=== PATIENT | female | born 1960 | race Caucasian/White ===

== ENCOUNTER 2022-03-22 09:34 | Outpatient (CLI) | payer MEDICAID, SELFPAY ==
--- NOTE | 2022-03-22 09:42 | MM_ITS ---
WS: [id number] BILATERAL SCREENING DIGITAL BREAST TOMOSYNTHESIS MAMMOGRAM WITH CAD HISTORY: SCREENING COMPARISON: 04/28/2019, 03/14/2011 Bilateral CC and MLO views with tomosynthesis and synthetic mammography submitted. Computer aided det ection analyzed. Breast composition: The breasts are heterogeneously dense, which may obscure small masses. No suspici ous masses, microcalcifications or architectural distortion. Arterial calcifications. MM/[place] [id number] IMPRESSION: BI-RADS: 2-Benign FOLLOW UP: 1 Year Follow-up
== END 2022-03-22 09:35 | disposition home or self-care (01) ==
LOC: RAD 09:34
PROVIDERS: PCP Nurse Practitioner Family; Visit Provider Nurse Practitioner Family
DX: Z12.31 Encounter for screening mammogram for malignant neoplasm of breast (principal)
CPT/HCPCS: 77063; 77067

== ENCOUNTER 2022-04-05 13:04 | Outpatient (CLI) | payer MEDICAID, SELFPAY ==
--- NOTE | 2022-04-05 13:16 | CT_ITS ---
WS: [id number] LDCT LUNG CANCER SCREENING TECHNIQUE: Noncontrast CT of the chest with coronal and sagittal reformatted images. CLINICAL INFORMATION: NICOTINE DEPENDENCE,CIGARETTES COMPARISON: None. DLP: 84.67 mGy.cm DIvol: Mean CTDIvol: 1.60 (mGy) All CT scans at [facility] use at least one of these dose optimization techniques: automat ed exposure control; mA and/or kV adjustment per patient size (includes targeted exams where dose is matched to clinical indication); or iterative reconstruction. FINDINGS: Calcific granuloma LEFT lower lobe. Tiny 2 mm nodule LEFT upper lobe and RIGHT lower lobe. 3 mm nodule RIGHT upper lobe. Normal caliber thoracic aorta. No mediastinal or hilar lymphadenopathy. No axillary lymphadenopathy. CT/CT lung screening [id number] IMPRESSION: LUNG-RADS: 2-Benign Appearance or Behavior FOLLOW UP: 12 Month: Continue annual screening with LDCT
== END 2022-04-05 13:05 | disposition home or self-care (01) ==
LOC: RAD 13:04
PROVIDERS: PCP Nurse Practitioner Family; Visit Provider Nurse Practitioner Family
DX: Z12.2 Encounter for screening for malignant neoplasm of respiratory organs (principal); F17.210 Nicotine dependence, cigarettes, uncomplicated
CPT/HCPCS: 71271

== ENCOUNTER 2022-09-01 20:13 | Inpatient (IN) | payer MEDICAID, SELFPAY ==
[2022-09-01] VITALS (15 sets, daily range): BP systolic 70–92; BP diastolic 46–59; PULSE 79–127; RESP 17–24; TEMP 37.9; O2SAT 94–100; BMI 19.7
--- NOTE | 2022-09-01 21:18 | XRR_ITS ---
PROCEDURE INFORMATION: Exam: XR Chest Exam date and time: 09/01/2022 9:33 PM Age: 62 years old Clinical indication: Shortness of breath; Patient HX: Low BP; Additional info: SOB TECHNIQUE: Imaging protocol: Radiologic exam of the chest. Views: 1 view. COMPARISON: CT lung screening [id number] 04/05/2022 1:31 PM FINDINGS: Lungs: Unremarkable. No consolidation. Pleural spaces: Unremarkable. No pleural effusion. No pneumothorax. Heart/Mediastinum: Unremarkable. No cardiomegaly. Bones/joints: No acute findings. XR/XR chest 1V portable [id number] IMPRESSION: No acute findings.
--- NOTE | 2022-09-01 21:33 | ED_ITS ---
HPI - Fever General: Chief Complaint: Fever Stated Complaint: flu +, n/v Time Seen by Provider: 09/01/22 21:14 Source: patient Mode of arrival: ambulatory Limitations: no limitations History of Present Illness: 62-year-old female states that she has felt very ill the last 3 to 4 days. States she had cough congestion along with fevers and body aches. She states she is also had vomiting and diarrhea states she feels like she has gotten very dehydrated she has had extreme weakness unable to walk today she is severely hypotensive here she has had fevers at home she denies any pain anywhere. Associated symptoms: Reports chills, diarrhea, nausea and vomiting; Deny chest pain, dysuria or headache(s) Review of Systems 2 Const: Reports: fever(s), chills, body aches, fatigue and malaise Eyes: Denies: blurry vision or eye discomfort ENMT: Reports: throat pain Card: Denies: chest pain Resp: Reports: dyspnea and non-productive cough GI: Reports: nausea, vomiting and diarrhea : Denies: dysuria Musc: Denies: neck pain or back pain Skin/Breast: Denies: rash Neuro: Denies: headache(s) Psych: Denies: depression Nitish/Lymph: Denies: easy bruising All/Imm: Denies: urticaria PFSH ED PFSH: Medical History (Updated 09/01/22 @ 23:27 by Aguilar Arita MD) No pertinent past medical history Social History (Updated 09/01/22 @ 21:34 by Aguliar Arita MD) Smoking and tobacco status: current every day smoker Physical Exam Const: COMMON NORMALS: patient oriented x3 GENERAL APPEARANCE: in distress, ill appearing and frail appearing HENMT: COMMON NORMALS: normocephalic and atraumatic HEAD & SCALP: normocephalic and atraumatic Eye: COMMON NORMALS: Equal, round and reactive pupils present and EOMs intact bilaterally PUPIL: Yes Equal, round and reactive pupils present Neck/C-Spine: COMMON NORMALS: full ROM and supple Chest: COMMONS NORMALS: normal inspection of the chest and normal palpation of entire chest wall Resp: COMMON NORMALS: normal respiratory effort, No retractions, No use of accessory muscles and clear to auscultation bilaterally AUSCULTATION: clear to auscultation bilaterally Cardio: COMMON NORMALS: regular rate, regular rhythm and No murmurs present (Cardio) RATE: regular rate RHYTHM: regular rhythm GI: COMMON NORMALS: Normal to inspection, nondistended, normoactive bowel sounds present, Soft to palpation, non-tender and no masses PALPATION: Yes Soft to palpation Extremity: COMMON NORMALS: normal to inspection and full ROM Neuro: COMMON NORMALS: patient oriented x3, moves all extremities and no focal motor deficits Psych: COMMON NORMALS: mental status grossly normal, Normal thought process present and cooperative THOUGHT PROCESS: Normal thought process present Skin: COMMON NORMALS: no rashes or lesions noted and no wounds GENERAL SKIN EXAM: no rashes or lesions noted Procedures Central Line Placement Right IJ: Time Out Performed: Yes Patient Placed on Monitor/Pulse Ox: Yes MD Prep: mask, gown and gloves Central Line Prep: Chlorhexidine scrub Local Anesthetic: lidocaine 1% Amount of anesthesia used (mL): 4 Ultrasound Used for Placement: Yes Central Line Lumen Inserted: triple Post Procedure: sutured in place, good blood return, all ports aspirated, flushed, capped and sterile dressing applied Post Procedure X-Ray: tip of catheter in good position and no pneumothorax seen Patient Tolerated Procedure: well Complications: none Course Vital Signs: Vital signs: Vital Signs Temperature 100.3 F H 09/01/22 20:55 Pulse Rate 127 H 09/01/22 20:55 Respiratory Rate 18 09/01/22 20:55 Pulse Oximetry 94 09/01/22 20:55 Oxygen Delivery Me thod 09/01/22 20:55 MDM - Fever Medical Decision Making Patient presents with septic shock she did have elevated white count and lactic patient continue be hypotensive here after IV fluids she is dehydrated as well patient had a central line placed placed on antibiotics along with Levophed will admit to the ICU. Lab Data 09/01/22 21:14 09/01/22 21:14 Radiology Impressions Chest X-Ray 09/01/22 22:35 IMPRESSION: No acute findings. Laboratory Results WBC 20.1 10^3/uL (4.0-10.0) H 09/01/22 21:14 RBC 5.01 10^6/uL (4.1-5.3) 09/01/22 21:14 Hgb 15.6 g/dL (11.5-15.3) H 09/01/22 21:14 Hct 45.8 % (37.0-47.0) 09/01/22 21:14 MCV 91.4 fl (81-99) 09/01/22 21:14 MCH 31.1 pg (28.0-34.0) 09/01/22 21:14 MCHC 34.1 g/dL (30.0-36.0) 09/01/22 21:14 RDW 13.0 % (12.1-15.1) 09/01/22 21:14 Plt Count 220 10^3/cmm (130-400) 09/01/22 21:14 MPV 10.4 fL (7.4-10.4) 09/01/22 21:14 Lymph % (Auto) Not Reportable 09/01/22 21:14 [place] % (Auto) Not Reportable 09/01/22 21:14 Lymph # (Auto) Not Reportable 09/01/22 21:14 [place] # (Auto) Not Reportable 09/01/22 21:14 Total Counted 100 (0-100) 09/01/22 21:14 Atypical Lymphs % 0.0 % (0-5) 09/01/22 21:14 Absolute Neutrophils 18.7 10^3/cmm (1.4-6.5) H 09/01/22 21:14 Segmented Neutrophils 64 % 09/01/22 21:14 Abs Segm Neuts (Man) 12.9 10/cmm (1.6-7.1) H 09/01/22 21:14 Band Neutrophils 29.0 % 09/01/22 21:14 Abs Band Neuts (Man) 5.8 10^3/cmm (0.0-1.2) H 09/01/22 21:14 Absolute Lymphocytes 0.6 10^3/cmm (1.2-3.4) L 09/01/22 21:14 Lymphocytes (Manual) 3 % 09/01/22 21:14 Monocytes (Manual) 1.0 % 09/01/22 21:14 Absolute Monocytes 0.2 10^3/cmm (0.1-0.6) 09/01/22 21:14 Eosinophils (Manual) 0 % 09/01/22 21:14 Absolute Eosinophils 0.0 10^3/cmm (0.0-0.7) 09/01/22 21:14 Basophils (Manual) 0.0 % 09/01/22 21:14 Absolute Basophils 0.0 10^3/cmm (0.0-0.2) 09/01/22 21:14 Metamyelocytes 3.0 % 09/01/22 21:14 Platelet Estimate Normal (Normal) 09/01/22 21:14 PT 15.00 SECONDS (12.1-14.9) H 09/01/22 21:14 INR 1.15 (0.8-1.2) 09/01/22 21:14 Sodium 128 mmol/L (136-145) L 09/01/22 21:14 Potassium 3.3 mmol/L (3.5-5.1) L 09/01/22 21:14 Chloride 91 mmol/L (98-107) L 09/01/22 21:14 Carbon Dioxide 16 mmol/L (22-29) L 09/01/22 21:14 Anion Gap 24.3 (5-19) H 09/01/22 21:14 BUN 36 mg/dL (8-23) H 09/01/22 21:14 Creatinine 3.0 mg/dL (0.5-0.9) H 09/01/22 21:14 GFR Calculation 15.9 mL/min (90-130) L 09/01/22 21:14 Glucose 141 mg/dL (65-115) H 09/01/22 21:14 Calculated Osmolality 277 mOsm/kg (285-295) L 09/01/22 21:14 Lactate 3.5 mmol/L (0.5-2.2) H 09/01/22 21:30 Calcium 8.5 mg/dL (8.5-10.5) 09/01/22 21:14 Total Bilirubin 0.3 mg/dL (0.15-1.2) 09/01/22 21:14 AST 39 U/L (0-32) H 09/01/22 21:14 ALT 31 U/L (0-33) 09/01/22 21:14 Alkaline Phosphatase 81 U/L (35-105) 09/01/22 21:14 C-Reactive Protein 341.0 mg/L (0.0-4.9) H 09/01/22 21:14 Total Protein 6.7 g/dL (6.6-8.7) 09/01/22 21:14 Albumin 3.7 g/dL (3.5-5.2) 09/01/22 21:14 Globulin 3.0 g/dL (1.3-4.6) 09/01/22 21:14 Lipase 9 U/L (13-60) L 09/01/22 21:14 Influenza Type A Ag Negative (Negative) 09/01/22 22:03 Influenza Type B Ag Negative (Negative) 09/01/22 22:03 SARS-CoV-2 Ag (Rapid) Negative (Negative) 09/01/22 22:03 EKG Data EKG 1: I personally reviewed and interpreted this EKG as follows: EKG interpretation date: 09/01/22 EKG interpretation time: 21:46 Interpretation: Normal sinus rhythm heart rate [address] or T wave abnormalities QRS 85 QTC 405 Critical Care Time Critical Care Time: Critical Care Time: Yes Total Critical Care Time: 60 Attestation: The high probability of a clinically significant, sudden or life threatening deterioration of the patient's cv system(s) required my full and direct attention, intervention and personal management. The critical care time is as shown. This time is in addition to time spent performing any reported procedures but includes the following: [x] Data and vital sign review and interpretation [x] Patient assessment, examination and intervention [x] Documentation [x] Medication orders and management Discharge Plan Discharge Patient Disposition: Admitted As Inpatient Admit Provider: Julius Barnes Clinical Impression: Septic shock, Dehydration Coding Level of Care Code ED For[employer] Press Operator for Chg Fwd Exam Comprehensive
[2022-09-01 21:39] LABS: Hematocrit 45.8 % (37.0-47.0); Hemoglobin 15.6 g/dL (11.5-15.3); Mean Corpuscular HGB Conc 34.1 g/dL (30.0-36.0); Mean Corpuscular Hemoglobin 31.1 pg (28.0-34.0); Mean Corpuscular Volume 91.4 fl (81-99); Mean Platelet Volume 10.4 fL (7.4-10.4); Platelet Count 220 10^3/cmm (130-400); Red Blood Count 5.01 10^6/uL (4.1-5.3); Total Protein 6.7 g/dL (6.6-8.7); White Blood Count 20.1 10^3/uL (4.0-10.0)
[2022-09-01 21:44] LABS: INR 1.15 (0.8-1.2)
--- NOTE | 2022-09-01 21:46 | ECG_ITS ---
[facility] Test Date: 2022-09-01 Pat Name: Mine Gayle Department: Room: Gender: Female Scada Technician: : 1960 Requested By: Aguilar Arita Order Number: [id number] Santosh MD: Deya Helms M.D. Measurements Intervals [place] Rate: 91 P: 42 AK: 150 QRS: -60 QRSD: 85 T: 69 QT: 356 QTc: 440 Interpretive Statements SINUS RHYTHM LEFT ANTERIOR FASCICULAR BLOCK [QRS AXIS <= -45, QR IN I, RS IN II] Nonspecific T wave change no previous ECG available for comparison Electronically Signed On 09-02-2022 15:16:32 PANEL BEATER by Deya Helms M.D. [id number]
[2022-09-01] MEDS: ondansetron 2 mg/ML SDV 2 mL 4 MG IVP (21:57)
[2022-09-01] MEDS: sodium chloride 0.9% 1,000 ML 999 ML IV ×3 (21:58→22:07)
[2022-09-01] MEDS: acetaminophen 325 mg Tablet 650 MG PO (21:58)
[2022-09-01 21:59] LABS: Absolute Neutrophil 18.7 10^3/cmm (1.4-6.5); Absolute Segmented Neutrophil 12.9 10/cmm (1.6-7.1); Band Neutrophils Absolute 5.8 10^3/cmm (0.0-1.2); Eosinophils 0 %; Lymphocytes 3 %; Lymphocytes Absolute 0.6 10^3/cmm (1.2-3.4); Monocytes Absolute 0.2 10^3/cmm (0.1-0.6); Platelet Estimate Normal (Normal); Segmented Neutrophils 64 %; Slide Review Slide Review Perform; Total Cells Counted 100 (0-100)
[2022-09-01 22:01] LABS: Potassium 3.3 mmol/L (3.5-5.1)
[2022-09-01 22:02] LABS: Alanine Aminotransferase 31 U/L (0-33); Albumin Level 3.7 g/dL (3.5-5.2); Alkaline Phosphatase 81 U/L (35-105); Anion Gap 24.3 (5-19); Aspartate Amino Transferase 39 U/L (0-32); Blood Urea Nitrogen 36 mg/dL (8-23); Calcium 8.5 mg/dL (8.5-10.5); Carbon Dioxide 16 mmol/L (22-29); Chloride 91 mmol/L (98-107); Glomerular Filtration Rate 15.9 mL/min (90-130); Glucose 141 mg/dL (65-115); Lipase 9 U/L (13-60); Osmolality Calculated 277 mOsm/kg (285-295); Sodium 128 mmol/L (136-145); Total Bilirubin 0.3 mg/dL (0.15-1.2)
[2022-09-01 22:32] LABS: Lactate (Lactic Acid level) 3.5 mmol/L (0.5-2.2)
--- NOTE | 2022-09-01 22:35 | XRR_ITS ---
PROCEDURE INFORMATION: Exam: XR Chest Exam date and time: 09/01/2022 10:38 PM Age: 62 years old Clinical indication: Device placement; Other: Central line; Additional info: Central line placement TECHNIQUE: Imaging protocol: Radiologic exam of the chest. Views: 1 view. COMPARISON: CR (CHEST, ) 09/01/2022 9:33 PM FINDINGS: Tubes, catheters and devices: Right-sided internal jugular central venous catheter is in place with tip at junction of superior vena cava and right atrium. Lungs: Unremarkable. No consolidation. Pleural spaces: Unremarkable. No pleural effusion. No pneumothorax. Heart/Mediastinum: Unremarkable. No cardiomegaly. Bones/joints: No acute findings. XR/XR chest 1V portable [id number] IMPRESSION: No acute findings.
[2022-09-01 23:03] LABS: Influenza A by IFA Negative (Negative); SARS Covid-2 Antigen Negative (Negative)
[2022-09-01 23:04] LABS: Influenza B by IFA Negative (Negative)
--- NOTE | 2022-09-01 23:36 | CTR_ITS ---
PROCEDURE INFORMATION: Exam: CT Chest Without Contrast; Diagnostic Exam date and time: 09/01/2022 11:57 PM Age: 62 years old Clinical indication: Other: Septic; Additional info: Fever, leukocytosis TECHNIQUE: Imaging protocol: Diagnostic computed tomography of the chest without contrast. Radiation optimization: All CT scans at this facility use at least one of these dose optimization techniques: automated exposure control; mA and/or kV adjustment per patient size (includes targeted exams where dose is matched to clinical indication); or iterative reconstruction. COMPARISON: CT lung screening 04/05/2022 1:31 PM RADIATION DOSE METRICS: Total DLP (mGy-cm): 468.1 FINDINGS: Tubes, catheters and devices: Internal jugular central venous catheter is in place on the right with tip in superior vena cava. Lungs: Mild scattered bronchial wall thickening likely is infectious/inflammatory. No consolidation. Mild dependent pulmonary parenchymal opacities likely represent atelectasis. Pleural spaces: Unremarkable. No pneumothorax. No pleural effusion. Heart: No coronary calcification. No cardiomegaly. No pericardial effusion. Lymph nodes: Unremarkable. No enlarged lymph nodes. Vasculature: Unremarkable. No aortic aneurysm. Bones/joints: No acute fracture. Soft tissues: Unremarkable. PROCEDURE INFORMATION: Exam: CT Abdomen And Pelvis Without Contrast Exam date and time: 09/01/2022 11:57 PM Age: 62 years old Clinical indication: Other: Septic; Additional info: Fever, leukocytosis TECHNIQUE: Imaging protocol: Computed tomography of the abdomen and pelvis without contrast. Radiation optimization: All CT scans at this facility use at least one of these dose optimization techniques: automated exposure control; mA and/or kV adjustment per patient size (includes targeted exams where dose is matched to clinical indication); or iterative reconstruction. COMPARISON: CT lung screening 04/05/2022 1:31 PM RADIATION DOSE METRICS: Total DLP (mGy-cm): 468.1 FINDINGS: Liver: Normal. No mass. Gallbladder and bile ducts: Elongated gallbladder distension. Gallbladder otherwise unremarkable. Pancreas: Normal. No ductal dilation. Spleen: Normal. No splenomegaly. Adrenal glands: Normal. No mass. Kidneys and ureters: Left renal ectopia is noted with much of the kidney positioned within the pelvis. Right kidney is also low lying with the lower portions of the kidney extending into the upper pelvis. No hydronephrosis. Stomach and bowel: Unremarkable. No obstruction. No mucosal thickening. Appendix: Appendix not well demonstrated. No gross acute inflammatory changes in right lower quadrant. Intraperitoneal space: Unremarkable. No free air. No significant fluid collection. Vasculature: Unremarkable. No abdominal aortic aneurysm. Lymph nodes: Unremarkable. No enlarged lymph nodes. Urinary bladder: Unremarkable as visualized. Reproductive: Hysterectomy. Bones/joints: No acute fracture. Soft tissues: Unremarkable. CT/[place] [id number] IMPRESSION: Mild scattered bronchial wall thickening likely is infectious/inflammatory. No consolidation. IMPRESSION: Left renal ectopia. Nonspecific elongated gallbladder distension; gallbladder otherwise unremarkable and finding can be correlated with prolonged NPO status.
--- NOTE | 2022-09-01 23:37 | ECG_ITS ---
[facility] Test Date: 2022-09-02 Pat Name: Mine Gayle Department: Room: [facility] Gender: Female Civil Engineering Assistant: : 1960 Requested By: Julius Barnes Order Number: [id number] Santosh MD: Deya Helms M.D. Measurements Intervals [place] Rate: 86 P: 58 OK: 154 QRS: -52 QRSD: 87 T: 66 QT: 375 QTc: 450 Interpretive Statements SINUS RHYTHM LEFT ANTERIOR FASCICULAR BLOCK [QRS AXIS <= -45, QR IN I, RS IN II] NONSPECIFIC T-WAVE ABNORMALITY Compared to ECG 09/01/2022 21:46:52 T-wave abnormality now present Electronically Signed On 09-02-2022 15:18:22 KOSHER SEALER by Deya Helms M.D. [id number]
[2022-09-02] VITALS (43 sets, daily range): BP systolic 88–129; BP diastolic 58–87; PULSE 74–99; RESP 13–28; TEMP 36.7–37.4; O2SAT 90–99; BMI 20.7
[2022-09-02] LABS: Ketone (Acetest) Serum Negative (Negative)
--- NOTE | 2022-09-02 00:24 | P.HP_ITS ---
Providers/Chief Complaint Admitting Physician: Julius Barnes MD Primary Care Provider: GOMEZ Rogers Chief Complaint: flu +, n/v History of Present Illness Mine Gayle is a 62 year old female with a past medical history of smoking, no formal diagnosis of COPD, history of hypertension, no other significant medical history, who presents to [facility] due to fa tigue, malaise, cough, fevers, diarrhea. Patient tells me that her son goes to work, and some he had his work tested positive for flu. Then her son became sick, then the rest of her family became sick, and then she became sick. She does that initially started off with sinus symptoms, progressing to nonproductive cough, fatigue, malaise, high-grade fevers, light diffuse aches and pain, joint pain, feeling lightheaded and dizzy followed by diarrhea. She denies any shortness of breath. She denies any chest pain. He denies any headache, no blurry vision, no neck pain. No neck pain range of motion no blurry vision. No headache. Does feel lightheaded. Does have a poor appetite. Does report recurrent nausea and vomiting she tells me that it is difficult to keep anything down due to the severe nausea episodes. She also reports diarrhea, no bloody or black stools reported. No new rashes. No calf pain, no calf swelling. No hemoptysis. She tells me that she has chronic back pain, she saw Dr. Myrick in the past she has had back surgery, no flank pain Review of Systems Const: Reports: fever(s), chills, body aches, fatigue and malaise Eyes: Denies: change in vision or blurry vision ENMT: Denies: throat pain Card: Denies: chest pain or palpitations Resp: Denies: dyspnea or wheezing GI: Reports: nausea and vomiting; Denies: hematemesis, hematochezia or melena : Denies: flank pain, dysuria or urinary frequency Musc: Denies: neck pain Skin/Breast: Denies: rash Neuro: Denies: headache(s) or vertigo Endo: Denies: polyuria or polydipsia Medications/Allergies Allergies Allergy/AdvReac Type Severity Reaction Status Date / Time No Known Allergies Allergy Verified 09/01/22 22:02 PFSH Acute PFSH: Medical History (Updated 09/02/22 @ 00:35 by Julius Barnes MD) History of back pain No pertinent past medical history Surgical History (Updated 09/02/22 @ 00:27 by Julius Barnes MD) History of back surgery Family History (Updated 09/02/22 @ 00:28 by Julius Barnes MD) Father Cancer Mother CHF (congestive heart failure) Social History (Updated 09/01/22 @ 21:34 by Aguilar Arita MD) Smoking and tobacco status: current every day smoker Vitals/I&O/Wt Last Vital Signs Temp 100.3 F H 09/01/22 20:55 Pulse 127 H 09/01/22 20:55 Resp 18 09/01/22 20:55 Pulse Ox 94 09/01/22 20:55 O2 Del Method 09/01/22 20:55 09/01/22 09/01/22 09/02/22 14:59 22:59 06:59 Intake Total 1001.524 / 1001.524 3.302 / 1004.826 Balance 1001.524 / 1001.524 3.302 / 1004.826 Weight last 48 hrs Weight 57.153 kg Physical Exam Const: COMMON NORMALS: no acute distress and patient oriented x3 HENMT: COMMON NORMALS: normocephalic HEAD & SCALP: normocephalic Eye: COMMON NORMALS: Equal, round and reactive pupils present and EOMs intact bilaterally Neck/C-Spine: COMMON NORMALS: no JVD Lymph: LYMPHATIC: no lymphadenopathy noted Resp: COMMON NORMALS: normal respiratory effort, No retractions, No use of accessory muscles and clear to auscultation bilaterally AUSCULTATION: clear to auscultation bilaterally Cardio: COMMON NORMALS: no JVD, regular rate, regular rhythm, S1 normal heart sound present and S2 normal heart sound present RATE: tachycardic RHYTHM: regular rhythm HEART SOUNDS: S1 normal heart sound present and S2 normal heart sound present GI: COMMON NORMALS: Normal to inspection, nondistended, normoactive bowel sounds present, Soft to palpation, non-tender, No hepatosplenomegaly present, no masses and no bruits PALPATION: Yes Soft to palpation and Yes No hepatosplenomegaly present Back/Pelvis: OTHER: No CVA tenderness Extremity: COMMON NORMALS: no calf tenderness and no pedal edema Neuro: COMMON NORMALS: patient oriented x3, CN's II-XII intact bilaterally, moves all extremities and no focal motor deficits Psych: COMMON NORMALS: mental status grossly normal Sepsis: Is patient septic: Yes Focused sepsis exam performed: Yes Focused sepsis exam: Capillary refills greater than 3 seconds, lower extremity bilateral, pale, Data 09/01/22 21:14 09/01/22 21:14 Micro: Microbiology 09/01/22 22:03 Blood Culture - Preliminary Blood SPECIMEN COLLECTED 09/01/22 21:30 Blood Culture - Preliminary Blood SPECIMEN COLLECTED A&P Assessment and plan (1) Septic shock: (2) Dehydration: (3) Acute renal failure: (4) Lactic acidosis: (5) Metabolic acidosis: (6) Leukocytosis: (7) Tachycardia: (8) Hypokalemia: (9) Goals of care, counseling/discussion: (10) Smoker: (11) Hypoxia: Plan Fevers -Etiology uncertain -Chest x-ray no focal pneumonia -He is requiring 2 L -Flu and COVID-negative -UA pending -CT chest abdomen pelvis pending -Respiratory viral panel pending -Blood cultures, sputum cultures, urine cultures, HIV, acute hepatitis panel Septic shock -Sepsis markers lactic acidosis, fevers, tachycardia, hypotension, requiring Levophed, requiring 2 L -Etiology uncertain -Work-up as above -Has received fluid bolus in the emergency room -Central line in place -Currently on Levophed -Maintain MAP is a 65 -Moved to ICU -Full code Acute renal failure -Secondary to sepsis, dehydration, has received sepsis bolus on Levophed, -CT scan ordered, UA ordered -Receiving IV fluids Lactic acidosis, secondary to sepsis as above Metabolic acidosis, secondary to septic shock, acute renal failure, will give an amp of bicarb Hypokalemia we will replace potassium Check magnesium level Leukocytosis, as above Hypoxic, requiring 2 L, as above Dehydration receiving IV fluids Smoker Goals of care discussion, full code - Attestations Medical Necessity Statement*: Patient requires hospitalization, inpatient, greater than 2 minutes, ICU, for septic shock, acute renal failure, leukocytosis, lactic acidosis, metabolic acidosis Coding Level of Care Code Acute Learning Operations Specialist for [facility] Diagnoses Septic shock A41.9; R65.21 Dehydration E86.0 Acute renal failure N17.9 Lactic acidosis E87.20 Metabolic acidosis E87.20 Leukocytosis D72.829 Tachycardia R00.0 Hypokalemia E87.6 Goals of care, counseling/discussion Z71.89 Smoker F17.200 Hypoxia R09.02 Sepsis Event Note Focused Exam Vital Signs Temp Pulse Resp BP Pulse Ox O2 Del Method O2 Flow Rate 09/01/22 22:45 89 19 H 85/57 98 Nasal Cannula 2 09/01/22 22:30 84 22 H 87/54 100 Nasal Cannula 2 09/01/22 22:23 92 24 H 92/48 100 Nasal Cannula 2 09/01/22 22:15 91 22 H 89/53 96 Nasal Cannula 2 09/01/22 22:08 85 17 75/51 100 Nasal Cannula 2 09/01/22 21:55 88 18 71/51 97 Nasal Cannula 2 09/01/22 21:45 90 18 70/46 98 Nasal Cannula 2 09/01/22 20:55 100.3 F H 127 H 18 94 Room Air Cardiovascular exam: Present tachycardia Capillary refill: > 3 Seconds Peripheral pulse strength: 2+ Slightly Diminished Peripheral pulse location: Pedal Skin exam: pale Date exam was performed: 09/02/22 Time exam was performed: 00:30 Problem List (1) Septic shock: Status: Acute (2) Dehydration: Status: Acute (3) Acute renal failure: Status: Acute (4) Lactic acidosis: Status: Acute (5) Metabolic acidosis: Status: Acute (6) Leukocytosis: Status: Acute (7) Tachycardia: Status: Acute (8) Hypokalemia: Status: Acute (9) Goals of care, counseling/discussion: Status: Acute (10) Smoker: Status: Acute (11) Hypoxia: Status: Acute
[2022-09-02 00:26] LABS: Erythrocyte Sedimentation Rate 66 mm/hr (0-15)
--- NOTE | 2022-09-02 00:36 | PC.NURSE ---
09/01/22 2350- patient transported to ct via monitor and O2 with no difficulties. patient returned approx 0015
[2022-09-02 01:15] LABS: ABG PCO2 33.4 mmHg (35-45); ABG PH Result 7.36 (7.35-7.45); Arterial Blood Gas Hematocrit 37.6 % (37-47); Base Excess ABG -5.5 mmol/L (-2.0-2.0); Blood Gas Allen Test Pos; Blood Gas Sample Site Radial, left; Blood Gas Sample Type Arterial; Oxygen Device ROOM AIR; PO2 ABG 90.3 mmHg (80.0-100.0)
[2022-09-02 01:27] LABS: Troponin(5th) Baseline 15 ng/L (0-10)
[2022-09-02 01:37] LABS: Cortisol Random 39.08 ug/dL (2.47-19.5)
--- NOTE | 2022-09-02 01:37 | USR_ITS ---
PROCEDURE INFORMATION: Exam: US Abdomen, Limited; Right Upper Quadrant Exam date and time: 09/02/2022 2:13 AM Age: 62 years old Clinical indication: Abnormal findings; Abnormal radiologic finding of the abdomen; Radiologic exam and body structure: CT; Additional info: Gallbladder distention TECHNIQUE: Imaging protocol: Real time ultrasound of the abdomen with image documentation. Limited exam focused on the right upper quadrant. COMPARISON: [place] [id number] 09/01/2022 11:57 PM FINDINGS: Liver: Normal. No masses. Gallbladder: Elongated gallbladder distension is noted. A few small gallstones are suggested within the gallbladder. Sonographic Davis sign is absent. Gallbladder wall thickness is normal. No pericholecystic fluid. Biliary ducts: Normal. No stones. No dilation. Pancreas: Visualized pancreas is unremarkable. Right kidney: Normal. No mass. No hydronephrosis. US/US gall bladder [id number] IMPRESSION: Elongated gallbladder distension with small quantity of small gallstones noted. If additional evaluation is needed, HIDA scan may be helpful. Otherwise, no acute findings.
--- NOTE | 2022-09-02 02:11 | PC.PHAR ---
Pharmacokinetic dosing service Date: 09/02/22 Time: 210 Objective: Patient: Mine Gayle Floor: ICU-9 Age: 62 yo Serum creatinine: 3.0 mg/dL Height: 67.0 Inches Weight (kg): 57.153 Diagnosis: Relevant medical/social history: Cultures and sensitivities: Other labs: Assessment: IBW (kg): 61.60 Dosing wt(kg): 57.153 Estimated Creatinine clearance (ml/min): 17.8 CRCL method: Cockcroft and Gault using ibw(default). Drug selected: Vancomycin Loading dose (mg): 0 Vd (liters): 51.4 (factor used: 0.9 L/kg) Bk (hr-1): 0.019 Half life (hrs): 36.48 Recommended dose: 1000 mg Interval: 48 hrs Infusion time (hrs): 1.5 Predicted peak (mcg/mL): 32.1 Predicted trough (mcg/mL): 13.27 Total body weight is being used for vancomycin dosing. Renal function is stable [ ] /unstable [ ] Recommendations: Give Vancomycin 1000 mg q 48 hrs with an expected Cpeak of 32.1 mcg/ml and an expected Ctrough of 13.27 mcg/ml Renal dosing of other antibiotics (review renal dosing of other medications and list guidelines here): Thank you for the consult, will continue to follow. Signature: Xiao Lawton [facility]
[2022-09-02 02:21] LABS: Add Urine Microscopic? YES; Bilirubin Urine Neg (Negative); Blood Urine 3+ (Negative); Glucose Urine UA Norm (Normal); Ketones Urine Negative (Negative); Leukocyte Esterase Urine 1+ (Negative); Nitrate Urine Negative (Negative); Protein Urine 1+ (Negative); Urine Appearance Cloudy (CLEAR); Urine Color Yellow (Yellow); Urobilinogen Urine Norm (Negative); pH Urine 5 (5-7)
[2022-09-02 02:22] LABS: Add Urine Culture? No; Amorphous Sediment Urine 3+ /hpf; Bacteria Urine TRACE /hpf; RBC Urine 0-4 /hpf (0-2)
[2022-09-02 02:30] LABS: INR 1.19 (0.8-1.2)
[2022-09-02 02:31] LABS: Partial Thromboplastin Time 31.8 SECONDS (23.9-36.7)
[2022-09-02 02:35] LABS: Free T4 Free Thyroxine 0.99 ng/dL (0.82-1.77); NT Pro B Type Natriuretic Pept 977 pg/mL (0-125); Procalcitonin 30.68 ng/mL (0-0.5); T3 Free 1.2 PG/ML (2.0-4.4); Thyroid Stimulating Hormone 0.48 uIU/mL (0.27-4.20)
--- NOTE | 2022-09-02 02:39 | ECG_ITS ---
[facility] Test Date: 2022-09-02 Pat Name: Mine Gayle Department: Room: [facility] Gender: Female Rn Ante Partum: : 1960 Requested By: Julius Barnes Order Number: [id number] Santosh MD: Deya Helms M.D. Measurements Intervals [place] Rate: 77 P: 32 OR: 150 QRS: -46 QRSD: 82 T: 69 QT: 377 QTc: 428 Interpretive Statements SINUS RHYTHM LEFT AXIS DEVIATION [QRS AXIS < -30] Compared to ECG 09/02/2022 00:26:51 Left-axis deviation now present Left anterior fascicular block no longer present T-wave abnormality no longer present Electronically Signed On 09-02-2022 15:26:08 COOK CHILL TECHNICIAN by Deya Helms M.D. [id number]
[2022-09-02] MEDS: meropenem 1,000 MG in sodium chloride 0.9% (plus) 50 ML 100 MG IV (02:45)
[2022-09-02 02:46] LABS: C Reactive Protein 280.7 mg/L (0.0-4.9); Creatine Phosphokinase 96 U/L (26-192); Magnesium 1.3 mg/dL (1.7-2.3)
[2022-09-02] MEDS: pantoprazole 40 mg SDV IVP (02:46)
[2022-09-02] MEDS: oseltamivir phosphate 30 mg Capsule PO (02:47)
[2022-09-02] MEDS: sodium bicarbonate 8.4% 1 mEq/mL 50mL Syr 50 MEQ IVP (02:47)
[2022-09-02] MEDS: lidocaine 1% 5 ML in potassium chloride premix 100 ML 25 ML IV (02:50)
[2022-09-02] MEDS: sodium chloride 0.9% 1,000 ML 125 ML IV ×3 (02:51→18:32)
[2022-09-02] MEDS: enoxaparin 40 mg/0.4 mL Syringe SUBCUT (02:51)
[2022-09-02] MEDS: vancomycin 1,000 MG in sodium chloride 0.9% 250 ML 250 MG IV (02:55)
[2022-09-02 03:07] LABS: Fibrinogen 673 mg/dL (174-498)
[2022-09-02 03:12] LABS: D Dimer 2.03 ug/mIFEU (0-0.59)
[2022-09-02 03:37] LABS: Rapid Strep A Test Positive (Negative)
[2022-09-02 03:48] LABS: Adenovirus Not Detected (NOT DETECT); Chlamydia Pneumoniae Not Detected (NOT DETECT); Coronavirus 229E,HKU1,NL63,OC4 Not Detected (NOT DETECT); Human Metapneumovirus Not Detected (NOT DETECT); Human Rhinovirus/Enterovirus Not Detected (NOT DETECT); Influenza A Detected (NOT DETECT); Influenza A H1 Not Detected (NOT DETECT); Influenza A H1-2009 Detected (NOT DETECT); Influenza A H3 Not Detected (NOT DETECT); Influenza B Not Detected (NOT DETECT); Mycoplasma Pneumoniae Not Detected (NOT DETECT); Parainfluenza Virus Type 1 Not Detected (NOT DETECT); Parainfluenza Virus Type 2 Not Detected (NOT DETECT); Parainfluenza Virus Type 3 Not Detected (NOT DETECT); Parainfluenza Virus Type 4 Not Detected (NOT DETECT); Respiratory Syncytial Virus A Not Detected (NOT DETECT); Respiratory Syncytial Virus B Not Detected (NOT DETECT); SARS-COV-2 Not Detected (NOT DETECT)
[2022-09-02] MEDS: benzonatate 100 mg Capsule PO ×3 (04:01→20:56)
[2022-09-02 05:10] LABS: Troponin 5 2HR 14.63 ng/L (0-10)
[2022-09-02 05:19] LABS: Troponin 5 2HR Delta -0.37 ABS# (0-10)
[2022-09-02] MEDS: magnesium sulfate premix 2 GM/50 ML PIGGYBACK IV (05:24)
--- NOTE | 2022-09-02 05:37 | ECG_ITS ---
[facility] Test Date: 2022-09-02 Pat Name: iMne Gayle Department: Room: [facility] Gender: Female Uke Operator: : 1960 Requested By: Julius Barnes Order Number: [id number] Santosh MD: Deya Helms M.D. Measurements Intervals [place] Rate: 77 P: 62 [place]: 155 QRS: -38 QRSD: 79 T: 68 QT: 378 QTc: 428 Interpretive Statements SINUS RHYTHM LEFT AXIS DEVIATION [QRS AXIS < -30] Compared to ECG 09/02/2022 02:39:21 No significant changes Electronically Signed On 09-03-2022 20:21:59 SENIOR IT ASSISTANT by Deya Helms M.D. [id number]
[2022-09-02 09:02] LABS: Troponin 5 6HR 12.51 ng/L (0-10)
[2022-09-02 09:03] LABS: Troponin 5 6HR Delta -2.49 ng/L (0-12)
--- NOTE | 2022-09-02 09:26 | USCV_ITS ---
Cornelio Gayleina Age: 62 Gender: F : 1960 Exam Date: 09/02/2022 11:38 Ordering Phys: Aakash Reyes MD Technologist: OCTAVIO [place] [facility] [place]: [place] BP: 100 / 62 HR: 85 Rhythm: Sinus Technical Quality: Adequate MEASUREMENTS (Male / Female) Normal Values 2D ECHO LV Diastolic Diameter PLAX 4.1 cm 4.2 - 5.9 / 3.9 - 5.3 cm LV Systolic Diameter PLAX 2.7 cm IVS Diastolic Thickness 0.9 cm 0.6 - 1.0 / 0.6 - 0.9 cm IVS Systolic Thickness 0.9 cm LVPW Diastolic Thickness 0.8 cm 0.6 - 1.0 / 0.6 - 0.9 cm LVPW Systolic Thickness 1.0 cm LVOT Diameter 2.3 cm LV Ejection Fraction 2D Teich 64.2 % LV Ejection Fraction MOD 2C 66.1 % LV Ejection Fraction 2C AL 66.7 % LA Diameter 2.7 cm IVC Diameter 2.4 cm M-MODE Aortic Annulus Diameter 2.9 cm LA Ao Ratio MM 0.8 MV E Point Septal Separation 0.4 cm DOPPLER AV Peak Velocity 106.0 cm/s LVOT Peak Velocity 93.0 cm/s AV Area Cont Eq vti 3.4 cm squared AV Area Cont Eq pk 3.6 cm squared MV Area PHT 4.0 cm squared MV E' Velocity 47.0 cm/s Mitral E to MV E' Ratio 6.2 Mitral E to LV E' Lateral Ratio 6.1 Mitral E to LV E' Septal Ratio 6.3 TR Peak Velocity 222.0 cm/s TR Peak Gradient 19.7 mmHg TV Peak E Velocity 60.0 cm/s Right Atrial Pressure 8.0 mmHg Pulmonary Artery Systolic Pressu 27.7 mmHg FINDINGS Left Ventricle Normal left ventricular size and systolic function, EF 64 %. No regional wall motion abnormalities. Right Ventricle The right ventricle is normal in size and function. Right Atrium The right atrium is normal in size. Left Atrium The left atrium is normal in size. Mitral Valve No gross abnormalities noted Aortic Valve No gross abnormalities noted Tricuspid Valve No gross abnormalities noted Pulmonic Valve No gross abnormalities noted Pericardium Normal pericardium without effusion. Aorta Normal ascending aorta dimension. IVC The inferior vena cava appears normal. CONCLUSIONS Normal left ventricular size and systolic function, EF 64 %. No regional wall motion abnormalities. Normal cardiac chamber sizes. No significant valvular abnormalities. There is no pericardial effusion. There are no intracardiac masses. Estimated pulmonary artery peak systolic pressure [address] Deya Helms MD [facility] (Electronically Signed) Final Date: 02 September 2022 14:49 S
[2022-09-02 09:29] LABS: Hepatitis A Antibody IgM Non-Reactive (Nonreactive); Hepatitis B Core IgM Non-Reactive (Nonreactive); Hepatitis B Surface Antigen Non-Reactive (Nonreactive); Hepatitis C Virus Antibody Non-Reactive (Nonreactive)
[2022-09-02 10:10] LABS: Estmated Average Glucose 94; Hemoglobin A1C 4.9 % (4.0-6.0)
[2022-09-02 10:23] LABS: HIV 1 & 2 Antibody Non-Reactive (Non-Reactiv); HIV 1 & 2 Antigen Non-Reactive (Non-Reactiv)
[2022-09-02 10:28] LABS: Amphetamines Screen Urine Negative (Negative); Barbiturates Screen Urine Negative (Negative); Benzodiazepines Screen Urine Negative (Negative); Cocaine Screen Urine Negative (Negative); Opiate Screen Urine Positive (Negative); PCP Screen Urine Negative (Negative); THC Screen Urine Negative (Negative)
[2022-09-02 10:41] LABS: Potassium, Radom Urine 54 mmol/L; Urine Random Sodium 24 mmol/L
[2022-09-02 11:06] LABS: Urine Creatinine 140 mg/dL (28-217)
[2022-09-02 11:46] LABS: Urine Random Chloride < 10 mmol/L
--- NOTE | 2022-09-02 11:54 | PM.MISC ---
Miscellaneous Note Purpose of Documentation: Cross coverage note. Note: Admitted overnight. H&P and labs appreciated. Examination patient is laying comfortably in bed. Denies any nausea, vomiting, headache. Currently on normal saline at 125 cc an hour and Levophed at 6 with mean arterial pressure over 75, Armijo placed. Patient denies any current nausea or vomiting. Medical history of multiple episodes of vomiting and myalgia along with diarrhea for last 3 days. Also gives history of neck pain for last 1 week but denies any photophobia. Kernig negative. Plan: Agree with continuing vancomycin and meropenem for now. Continue with Tamiflu. Dose medications as per creatinine clearance. Repeat CBC and CMP from today morning. Check urine drug screen, MRSA swab, urine Legionella and bacterial antigen. Wean Levophed keeping mean arterial pressure over 65. Monitor urine output. Monitor blood cultures. Restart home gabapentin and baclofen at lower dose as per creatinine clearance.
--- NOTE | 2022-09-02 12:42 | PC.NURSE ---
Home medications (Lisinopril 10mg quantity 13, Gabapentin 300 mg quantity 57, Baclofen 10 mg quantity 72, one pack cigarettes with delivery crew member, and an inhaler) sent home with patient's son Antolin Brown per patient request.
[2022-09-02 13:03] LABS: Basophils # 0.1 10^3/uL (0.0-0.1); Basophils % 0.4 %; Eosinophils # 0.2 10^3/uL (0.0-0.8); Eosinophils % 1.7 %; Hematocrit 35.4 % (37.0-47.0); Hemoglobin 11.9 g/dL (11.5-15.3); Lymphocytes # 0.4 10^3/uL (0.8-4.8); Mean Corpuscular HGB Conc 33.6 g/dL (30.0-36.0); Mean Corpuscular Hemoglobin 31.2 pg (28.0-34.0); Mean Corpuscular Volume 92.7 fl (81-99); Mean Platelet Volume 10.7 fL (7.4-10.4); Monocytes # 0.4 10^3/uL (0.2-0.9); Monocytes % 2.8 %; Neutrophils # 12.77 10^3/uL (1.8-7.7); Neutrophils % 91.7 %; Nucleated Red Blood Cells % 0 %; Platelet Count 155 10^3/cmm (130-400); Red Blood Count 3.82 10^6/uL (4.1-5.3); White Blood Count 13.9 10^3/uL (4.0-10.0)
[2022-09-02 13:10] LABS: Alanine Aminotransferase 19 U/L (0-33); Albumin Level 2.5 g/dL (3.5-5.2); Alkaline Phosphatase 63 U/L (35-105); Anion Gap 11.4 (5-19); Aspartate Amino Transferase 21 U/L (0-32); Blood Urea Nitrogen 34 mg/dL (8-23); Calcium 7.9 mg/dL (8.5-10.5); Carbon Dioxide 21 mmol/L (22-29); Chloride 103 mmol/L (98-107); Globulin 2.8 g/dL (1.3-4.6); Glomerular Filtration Rate 35.3 mL/min (90-130); Glucose 104 mg/dL (65-115); Iron 15 ug/dL (37-145); Osmolality Calculated 282 mOsm/kg (285-295); Percent Saturation 15.3 % (20-50); Potassium 3.4 mmol/L (3.5-5.1); Sodium 132 mmol/L (136-145); Total Bilirubin 0.2 mg/dL (0.15-1.2); Total Iron Binding Capacity 98 mcg/dl; Total Protein 5.3 g/dL (6.6-8.7); Unsaturated Iron Binding 83 ug/dL (112-347)
[2022-09-02 13:25] LABS: Vitamin B12 1537 pg/mL (232-1245)
[2022-09-02 13:32] LABS: Folate Level 14.6 ng/mL (4.8-37.3)
[2022-09-02] MEDS: acetaminophen 325 mg Tablet 650 MG PO ×2 (13:48→20:56)
[2022-09-02] MEDS: gabapentin 100 mg Capsule PO ×2 (13:49→20:56)
[2022-09-02] MEDS: meropenem 500 MG in sodium chloride 0.9% (plus) 50 ML 100 MG IV (13:49)
[2022-09-02] MEDS: baclofen 10 mg Tablet 5 MG PO (17:06)
[2022-09-02] MEDS: budesonide 0.5 mg/2 mL Neb INHALATION (20:55)
[2022-09-03] VITALS (21 sets, daily range): BP systolic 100–133; BP diastolic 61–92; PULSE 72–98; RESP 15–31; TEMP 36.8–37.2; O2SAT 93–98
[2022-09-03] MEDS: meropenem 500 MG in sodium chloride 0.9% (plus) 50 ML 400 MG IV (01:39)
[2022-09-03] MEDS: pantoprazole 40 mg SDV IVP (01:39)
[2022-09-03] MEDS: sodium chloride 0.9% 1,000 ML 125 ML IV ×2 (01:39→08:34)
[2022-09-03] MEDS: acetaminophen 325 mg Tablet 650 MG PO ×2 (04:12→18:07)
[2022-09-03 04:28] LABS: Basophils % 0.2 %; Eosinophils # 0.4 10^3/uL (0.0-0.8); Eosinophils % 4.6 %; Hematocrit 32.6 % (37.0-47.0); Lymphocytes # 0.6 10^3/uL (0.8-4.8); Lymphocytes % 6.6 %; Mean Corpuscular HGB Conc 33.7 g/dL (30.0-36.0); Mean Corpuscular Hemoglobin 31.4 pg (28.0-34.0); Mean Corpuscular Volume 93.1 fl (81-99); Mean Platelet Volume 10.7 fL (7.4-10.4); Monocytes # 0.4 10^3/uL (0.2-0.9); Monocytes % 3.9 %; Neutrophils # 7.57 10^3/uL (1.8-7.7); Neutrophils % 84.4 %; Nucleated Red Blood Cells % 0 %; Platelet Count 129 10^3/cmm (130-400)
[2022-09-03 04:45] LABS: Alanine Aminotransferase 24 U/L (0-33); Albumin Level 2.3 g/dL (3.5-5.2); Alkaline Phosphatase 86 U/L (35-105); Aspartate Amino Transferase 29 U/L (0-32); Blood Urea Nitrogen 21 mg/dL (8-23); Calcium 7.8 mg/dL (8.5-10.5); Carbon Dioxide 21 mmol/L (22-29); Chol HDL Ratio 5.78 mg/dL (0.0-4.40); Cholesterol 104 mg/dL (0-200); Globulin 2.7 g/dL (1.3-4.6); Glomerular Filtration Rate 56.4 mL/min (90-130); Glucose 115 mg/dL (65-115); HDL Cholesterol 18 mg/dL (60-100); LDL Cholesterol Calculated 40 mg/dL (50-129); Phosphorus 1.4 mg/dL (2.5-4.5); Total Bilirubin 0.3 mg/dL (0.15-1.2); Triglycerides 232 mg/dL (0-150); VLDL Cholestrol Calculation 46 mg/dL (0-30)
[2022-09-03 05:07] LABS: Slide Review Slide Review Perform
[2022-09-03 06:38] LABS: Anion Gap 9.2 (5-19); Chloride 110 mmol/L (98-107); Osmolality Calculated 288 mOsm/kg (285-295); Potassium 3.2 mmol/L (3.5-5.1); Sodium 137 mmol/L (136-145)
[2022-09-03] MEDS: gabapentin 100 mg Capsule PO ×3 (08:33→21:08)
[2022-09-03] MEDS: baclofen 10 mg Tablet 5 MG PO ×2 (08:33→18:08)
[2022-09-03] MEDS: enoxaparin 30 mg/0.3 mL Syringe SUBCUT (08:33)
[2022-09-03] MEDS: budesonide 0.5 mg/2 mL Neb INHALATION (09:01)
[2022-09-03] MEDS: ipratropium 0.5 mg/2.5 mL Neb INHALATION (09:01)
[2022-09-03] MEDS: albuterol 2.5 mg/3 mL Neb INHALATION (09:02)
[2022-09-03] MEDS: loperamide 2 mg Capsule PO (12:41)
--- NOTE | 2022-09-03 13:11 | P.PN_ITS ---
Subjective Subjective: No acute events overnight. Patient doing a lot better. Off Levophed. Denies any nausea, vomiting, headache. Still having episodes of diarrhea. Has remained afebrile and on room air. Vitals/I&O/Wt Last Vital Signs Temp 98.7 F 09/03/22 07:00 Pulse 91 09/03/22 12:00 Resp 23 H 09/03/22 12:00 BP 118/76 09/03/22 12:00 Pulse Ox 97 09/03/22 12:00 O2 Del Method 09/03/22 12:00 O2 Flow Rate 2 09/02/22 01:15 09/02/22 09/03/22 09/03/22 22:59 06:59 14:59 Intake Total 1659.429 / 3646.308 1650 / 5296.308 1104.583 / 1104.583 Output Total 1350 / 2000 1500 / 3500 Balance 309.429 / 1646.308 150 / 1882.699 1658.583 / 1104.583 Weight last 48 hrs Weight 59.92 kg Weight 57.153 kg Physical Exam Const: COMMON NORMALS: no acute distress and patient oriented x3 HENMT: COMMON NORMALS: normocephalic HEAD & SCALP: normocephalic Eye: COMMON NORMALS: Equal, round and reactive pupils present and EOMs intact bilaterally PUPIL: Yes Equal, round and reactive pupils present Neck/C-Spine: COMMON NORMALS: no JVD Lymph: LYMPHATIC: no lymphadenopathy noted Resp: COMMON NORMALS: normal respiratory effort, No retractions, No use of accessory muscles and clear to auscultation bilaterally AUSCULTATION: clear to auscultation bilaterally Cardio: COMMON NORMALS: no JVD, regular rate, regular rhythm, S1 normal heart sound present and S2 normal heart sound present RATE: regular rate and tachycardic RHYTHM: regular rhythm HEART SOUNDS: S1 normal heart sound pr esent and S2 normal heart sound present GI: COMMON NORMALS: Normal to inspection, nondistended, normoactive bowel sounds present, Soft to palpation, non-tender, No hepatosplenomegaly present, no masses and no bruits PALPATION: Yes Soft to palpation and Yes No hepatosplenomegaly present Back/Pelvis: OTHER: No CVA tenderness Extremity: COMMON NORMALS: no calf tenderness and no pedal edema Neuro: COMMON NORMALS: patient oriented x3, CN's II-XII intact bilaterally, moves all extremities and no focal motor deficits Psych: COMMON NORMALS: mental status grossly normal Urinary Catheter Management: Armijo: Cath Placed During This Visit: yes Reason for Continuing Indwelling Catheter: Accurate Measurement of Urinary Output in Critically Ill Patients Urinary Catheter Date of Insertion: 09/02/22 Urinary Catheter Time of Insertion: 01:53 Data 09/03/22 04:00 09/03/22 04:00 Micro: Microbiology 09/01/22 22:03 Blood Culture - Preliminary Blood NEGATIVE TO DATE 09/01/22 21:30 Blood Culture - Preliminary Blood NEGATIVE TO DATE 09/02/22 01:53 Gram Stain - Final Sputum - Expectorated Sputum 09/02/22 06:50 Stool Lactoferrin - Final Stool Enteric Pathogens (PCR) - Final Parasite Antigen Panel - Final C.difficile Toxin B Gene (PCR) - Final Occult Blood (FIT) - Final 09/02/22 01:53 MRSA Culture - Final Nose 09/02/22 01:53 Bacterial Antigens - Final Urine Kidney 09/02/22 01:53 Legionella Urinary Antigen - Final Unknown Source A&P Assessment and plan (1) Septic shock: Present on admission. Keep mean artery pressure over 65. Levophed weaned off accordingly. Follow-up blood cultures. Sputum culture pending. For now continue empiric antibiotics with vancomycin and meropenem. Stool studies negative for infectious source for now. CT abdomen pelvis and right upper quadrant ultrasound negative for cholecystitis or any infectious process. UA appreciated. Urine drug screen negative. Flu positive. (2) Acute renal failure: Most likely secondary dehydration and septic shock along with use of lisinopril at home. Medical reconciliation done for nephrotoxic drugs. Creatinine down to 1 today. Monitor input output. Continue with IV fluids at 75 cc/h. (3) Diarrhea: Stool studies negative for C. difficile. Imodium as needed. Continue with IV hydration. Replete potassium. (4) Influenza A: Change dose of Tamiflu to 75 mg twice daily as per creatinine clearance. Supportive treatment. Incentive spirometry. (5) Dehydration: Resolved with IV fluids. (6) Hypokalemia: Replete with oral potassium 80 mEq daily. (7) Lactic acidosis: (8) Metabolic acidosis: Resolved. (9) Smoker: Counseled in detail against smoking. Encouraged to stop smoking. Plan Iron deficiency anemia Protein energy malnutrition: Full code. Regular diet. Protonix OPD prophylaxis Heparin for DVT prophylaxis. Transfer out of ICU to MedSurg floor. Attestations Medical Necessity Statement*: Requires further hospitalization for management of resolution of septic shock, acute kidney i, diarrhea jury Coding Level of Care Code Acute Policy Specialist for [facility] Fwd Diagnoses Septic shock A41.9; R65.21 Acute renal failure N17.9 Diarrhea R19.7 Influenza A J10.1 Dehydration E86.0 Hypokalemia E87.6 Lactic acidosis E87.20 Metabolic acidosis E87.20 Smoker F17.200
[2022-09-03] MEDS: meropenem 1,000 MG in sodium chloride 0.9% (plus) 50 ML 100 MG IV ×2 (13:24→21:08)
--- NOTE | 2022-09-03 15:42 | PC.NURSE ---
Report called to MARLENY Dumont. Patient and belongings taken to room 273.
--- NOTE | 2022-09-03 16:37 | PC.NURSE ---
Family, Natalia, called and notified of transfer to room 273. Gave update. No further questions.
--- NOTE | 2022-09-03 16:57 | PC.NURSE ---
Patient arrived to unit via WC, VSS, AAOx4, Bedside commode available. OOBTC and BSC, has not voided post babcock removal at this time will continue to monitor. C/o headache, no other needs or new events. Room clean and clutter free with call light in reach.
[2022-09-03] MEDS: benzonatate 100 mg Capsule PO (18:07)
[2022-09-03] MEDS: potassium chloride ER 20 mEq Tablet 80 MEQ PO (18:08)
[2022-09-03] MEDS: oseltamivir phosphate 75 mg Capsule PO (18:08)
[2022-09-04] VITALS (10 sets, daily range): BP systolic 117–134; BP diastolic 60–79; PULSE 73–87; RESP 16–24; TEMP 36.7–36.9; O2SAT 95–96
[2022-09-04] MEDS: acetaminophen 325 mg Tablet 650 MG PO (00:51)
[2022-09-04] MEDS: pantoprazole 40 mg SDV IVP (00:52)
[2022-09-04] MEDS: vancomycin 1,000 MG in sodium chloride 0.9% 250 ML 250 MG IV (02:56)
[2022-09-04 04:15] LABS: Basophils % 0.3 %; Eosinophils # 0.3 10^3/uL (0.0-0.8); Hematocrit 31.5 % (37.0-47.0); Hemoglobin 10.4 g/dL (11.5-15.3); Lymphocytes # 1.3 10^3/uL (0.8-4.8); Lymphocytes % 18.6 %; Mean Corpuscular Hemoglobin 30.5 pg (28.0-34.0); Mean Corpuscular Volume 92.4 fl (81-99); Mean Platelet Volume 10.4 fL (7.4-10.4); Monocytes # 0.5 10^3/uL (0.2-0.9); Monocytes % 6.7 %; Neutrophils # 5.05 10^3/uL (1.8-7.7); Nucleated Red Blood Cells % 0 %; Platelet Count 144 10^3/cmm (130-400); Red Blood Count 3.41 10^6/uL (4.1-5.3); Red Cell Distribution Width 13.1 % (12.1-15.1); White Blood Count 7.2 10^3/uL (4.0-10.0)
[2022-09-04 04:39] LABS: Slide Review Slide Review Perform
[2022-09-04] MEDS: sodium chloride 0.9% 1,000 ML 75 ML IV (04:39)
[2022-09-04 04:40] LABS: Alanine Aminotransferase 25 U/L (0-33); Albumin Level 2.6 g/dL (3.5-5.2); Alkaline Phosphatase 74 U/L (35-105); Anion Gap 11.6 (5-19); Aspartate Amino Transferase 22 U/L (0-32); Blood Urea Nitrogen 12 mg/dL (8-23); Carbon Dioxide 21 mmol/L (22-29); Chloride 115 mmol/L (98-107); Globulin 2.5 g/dL (1.3-4.6); Glomerular Filtration Rate 101.6 mL/min (90-130); Glucose 91 mg/dL (65-115); Osmolality Calculated 297 mOsm/kg (285-295); Potassium 3.6 mmol/L (3.5-5.1); Sodium 144 mmol/L (136-145); Total Bilirubin 0.3 mg/dL (0.15-1.2); Total Protein 5.1 g/dL (6.6-8.7)
[2022-09-04] MEDS: benzonatate 100 mg Capsule PO (04:40)
[2022-09-04] MEDS: meropenem 1,000 MG in sodium chloride 0.9% (plus) 50 ML 100 MG IV (05:54)
[2022-09-04] MEDS: ipratropium 0.5 mg/2.5 mL Neb INHALATION (07:50)
[2022-09-04] MEDS: budesonide 0.5 mg/2 mL Neb INHALATION (07:50)
[2022-09-04] MEDS: albuterol 2.5 mg/3 mL Neb INHALATION (07:50)
[2022-09-04] MEDS: baclofen 10 mg Tablet 5 MG PO (08:16)
[2022-09-04] MEDS: gabapentin 100 mg Capsule PO (08:17)
[2022-09-04] MEDS: oseltamivir phosphate 75 mg Capsule PO (08:17)
[2022-09-04] MEDS: enoxaparin 40 mg/0.4 mL Syringe SUBCUT (08:17)
--- NOTE | 2022-09-04 13:30 | PM.DCS ---
Discharge Providers Date of Admission: 09/02/22 00:45 Date of Discharge: September 04, 2022 Attending Provider at Admission: Julius Barnes MD Attending Provider at Discharge: Tomy Varma Primary Care Provider: GOMEZ Rogers Diagnoses at Discharge Discharge Diagnosis (1) Septic shock: Status: Acute (2) Acute renal failure: Status: Acute (3) Diarrhea: Status: Acute (4) Influenza A: Status: Acute (5) Dehydration: Status: Acute (6) Hypokalemia: Status: Acute (7) Lactic acidosis: Status: Acute (8) Metabolic acidosis: Status: Acute (9) Smoker: Status: Acute Reason for Visit Reason for Visit: flu +, n/v Hospital Course Hospital Course Pleasant 62-year-old lady with history of hypertension, smoking, was admitted for cyst management after presenting with malaise, myalgias, weakness, nausea and vomiting as well as diarrhea. Presented in septic shock, with bronchial wall thickening on CT, you requiring 2 L oxygen support. Found to be influenza A positive. Started on Tamiflu. Received IV fluid resuscitation. Required pressor support. With acute kidney injury on presentation, creatinine up to 3. Received fluid challenge. With metabolic acidosis on presentation. Stool studies negative for C. difficile. Positive Hemoccult, WBC. Septic shock resolved. Weaned off hemodynamic support. BLANK resolved. Metabolic acidosis improved. She is gradually continued to get better. She weaned off oxygen. He is getting up from bed. Sputum cultures growing haemophilus and also group a strep. In the hospital was empirically also treated with meropenem and vancomycin. Will complete course of antibiotic therapy with Augmentin. Physical Exam Const: COMMON NORMALS: patient oriented x3 and alert GENERAL APPEARANCE: cooperative ORIENTATION/CONSCIOUSNESS: Yes awake HENMT: COMMON NORMALS: oropharynx normal Neck/C-Spine: COMMON NORMALS: no JVD Resp: COMMON NORMALS: normal respiratory effort and clear to auscultation bilaterally AUSCULTATION: clear to auscultation bilaterally Cardio: COMMON NORMALS: no JVD, regular rhythm, S1 normal heart sound present, S2 normal heart sound present and No murmurs present (Cardio) RHYTHM: regular rhythm HEART SOUNDS: S1 normal heart sound present and S2 normal heart sound present GI: COMMON NORMALS: Normal to inspection, nondistended, normoactive bowel sounds present, Soft to palpation and non-tender PALPATION: Yes Soft to palpation Extremity: COMMON NORMALS: no joint enlargement and no pedal edema Neuro: COMMON NORMALS: patient oriented x3 and moves all extremities SENSORIUM/ORIENTATION: Yes alert Skin: COMMON NORMALS: no rashes or lesions noted GENERAL SKIN EXAM: no rashes or lesions noted Urinary Catheter Management: Armijo: Cath Placed During This Visit: yes, but has since been removed by the nurse Reason for Continuing Indwelling Catheter: Decision to DC Catheter Urinary Catheter Date of Insertion: 09/02/22 Urinary Catheter Time of Insertion: 01:53 Date Urinary Catheter Removed: 09/03/22 Time Urinary Catheter Discontinued: 15:00 Discharge Data Studies Completed and Pending Completed Studies During Hospitalization Category Date Time Status CT chest abdomen pelvis [[place] [id number] Cat Scan 09/01/22 23:36 Completed ] Stat CXRP [XR chest 1V portable [id number]] Stat Exams 09/01/22 22:35 Completed XR chest 1V portable [id number] Stat Exams 09/01/22 21:18 Completed CV. echo complete* [id number] Routine Ultrasound 09/02/22 09:26 Completed US gall bladder [id number] Routine Ultrasound 09/02/22 01:37 Completed Pending at discharge Category Date Time Status Blood Culture Stat Lab 09/01/22 22:03 Results Sputum Culture and Gram Stain Stat Lab 09/02/22 01:53 Results Radiology Impressions Chest X-Ray 09/01/22 22:35 IMPRESSION: No acute findings. Chest/Abdomen/Pelvis CT 09/01/22 23:36 IMPRESSION: Mild scattered bronchial wall thickening likely is infectious/inflammatory. No consolidation. IMPRESSION: Left renal ectopia. Nonspecific elongated gallbladder distension; gallbladder otherwise unremarkable and finding can be correlated with prolonged NPO status. Gallbladder Ultrasound 09/02/22 01:37 IMPRESSION: Elongated gallbladder distension with small quantity of small gallstones noted. If additional evaluation is needed, HIDA scan may be helpful. Otherwise, no acute findings. Laboratory Results WBC 7.2 10^3/uL (4.0-10.0) 09/04/22 03:38 RBC 3.41 10^6/uL (4.1-5.3) L 09/04/22 03:38 Hgb 10.4 g/dL (11.5-15.3) L 09/04/22 03:38 Hct 31.5 % (37.0-47.0) L 09/04/22 03:38 MCV 92.4 fl (81-99) 09/04/22 03:38 MCH 30.5 pg (28.0-34.0) 09/04/22 03:38 MCHC 33.0 g/dL (30.0-36.0) 09/04/22 03:38 RDW 13.1 % (12.1-15.1) 09/04/22 03:38 Plt Count 144 10^3/cmm (130-400) 09/04/22 03:38 MPV 10.4 fL (7.4-10.4) 09/04/22 03:38 Neut % (Auto) 70.0 % 09/04/22 03:38 Lymph % (Auto) 18.6 % 09/04/22 03:38 Hemphill % (Auto) 6.7 % 09/04/22 03:38 Eos % (Auto) 4.0 % 09/04/22 03:38 Baso % (Auto) 0.3 % 09/04/22 03:38 Neut # (Auto) 5.05 10^3/uL (1.8-7.7) 09/04/22 03:38 Lymph # (Auto) 1.3 10^3/uL (0.8-4.8) 09/04/22 03:38 Hemphill # (Auto) 0.5 10^3/uL (0.2-0.9) 09/04/22 03:38 Eos # (Auto) 0.3 10^3/uL (0.0-0.8) 09/04/22 03:38 Baso # (Auto) 0.0 10^3/uL (0.0-0.1) 09/04/22 03:38 Nucleated RBC % (auto) 0 % 09/04/22 03:38 Total Counted 100 (0-100) 09/01/22 21:14 Atypical Lymphs % 0.0 % (0-5) 09/01/22 21:14 Absolute Neutrophils 18.7 10^3/cmm (1.4-6.5) H 09/01/22 21:14 Segmented Neutrophils 64 % 09/01/22 21:14 Abs Segm Neuts (Man) 12.9 10/cmm (1.6-7.1) H 09/01/22 21:14 Band Neutrophils 29.0 % 09/01/22 21:14 Abs Band Neuts (Man) 5.8 10^3/cmm (0.0-1.2) H 09/01/22 21:14 Absolute Lymphocytes 0.6 10^3/cmm (1.2-3.4) L 09/01/22 21:14 Lymphocytes (Manual) 3 % 09/01/22 21:14 Monocytes (Manual) 1.0 % 09/01/22 21:14 Absolute Monocytes 0.2 10^3/cmm (0.1-0.6) 09/01/22 21:14 Eosinophils (Manual) 0 % 09/01/22 21:14 Absolute Eosinophils 0.0 10^3/cmm (0.0-0.7) 09/01/22 21:14 Basophils (Manual) 0.0 % 09/01/22 21:14 Absolute Basophils 0.0 10^3/cmm (0.0-0.2) 09/01/22 21:14 Metamyelocytes 3.0 % 09/01/22 21:14 Nucleated RBCs # 0.0 /100WBC 09/04/22 03:38 Platelet Estimate Normal (Normal) 09/01/22 21:14 ESR 66 mm/hr (0-15) H 09/01/22 21:14 PT 15.40 SECONDS (12.1-14.9) H 09/02/22 00:54 INR 1.19 (0.8-1.2) 09/02/22 00:54 APTT 31.8 SECONDS (23.9-36.7) 09/02/22 00:54 Fibrinogen 673 mg/dL (174-498) H 09/02/22 00:54 Fibrin Degrad Products Neg, <10 ug/mL (NEG) 09/02/22 00:54 D-Dimer 2.03 ug/mIFEU (0-0.59) H 09/02/22 00:54 Specimen Type Arterial 09/01/22 01:15 Sample Site Radial, left 09/01/22 01:15 ABG pH 7.36 (7.35-7.45) 09/01/22 01:15 ABG pCO2 33.4 mmHg (35-45) L 09/01/22 01:15 ABG pO2 90.3 mmHg (80.0-100.0) 09/01/22 01:15 ABG HCO3 19.0 mmol/L (22-26) L 09/01/22 01:15 ABG Base Excess -5.5 mmol/L (-2.0-2.0) L 09/01/22 01:15 Andriy Test Pos 09/01/22 01:15 Hematocrit 37.6 % (37-47) 09/01/22 01:15 O2 Delivery Device Room air 09/01/22 01:15 FiO2 21.0 % 09/01/22 01:15 Outside Machinist Apprentice ID Droch 09/01/22 01:15 Sodium 144 mmol/L (136-145) 09/04/22 03:38 Potassium 3.6 mmol/L (3.5-5.1) 09/04/22 03:38 Chloride 115 mmol/L (98-107) H 09/04/22 03:38 Carbon Dioxide 21 mmol/L (22-29) L 09/04/22 03:38 Anion Gap 11.6 (5-19) 09/04/22 03:38 BUN 12 mg/dL (8-23) 09/04/22 03:38 Creatinine 0.6 mg/dL (0.5-0.9) 09/04/22 03:38 GFR Calculation 101.6 mL/min (90-130) 09/04/22 03:38 Glucose 91 mg/dL (65-115) 09/04/22 03:38 Estimat Average Glucose 94 09/02/22 07:22 Hemoglobin A1c 4.9 % (4.0-6.0) 09/02/22 07:22 Calculated Osmolality 297 mOsm/kg (285-295) H 09/04/22 03:38 Lactate 3.5 mmol/L (0.5-2.2) H 09/01/22 21:30 Calcium 8.0 mg/dL (8.5-10.5) L 09/04/22 03:38 Phosphorus 1.4 mg/dL (2.5-4.5) L 09/03/22 04:00 Magnesium 1.3 mg/dL (1.7-2.3) L 09/02/22 00:54 Iron 15 ug/dL (37-145) L 09/02/22 12:30 TIBC 98 mcg/dl 09/02/22 12:30 % Saturation 15.3 % (20-50) L 09/02/22 12:30 Unsat Iron Binding 83 ug/dL (112-347) L 09/02/22 12:30 Total Bilirubin 0.3 mg/dL (0.15-1.2) 09/04/22 03:38 AST 22 U/L (0-32) 09/04/22 03:38 ALT 25 U/L (0-33) 09/04/22 03:38 Alkaline Phosphatase 74 U/L (35-105) 09/04/22 03:38 Creatine Kinase 96 U/L (26-192) 09/02/22 00:54 Troponin T Baseline 15 ng/L (0-10) H 09/02/22 00:54 Troponin T 120 Minute 14.63 ng/L (0-10) H 09/02/22 03:25 Delta Troponin T -0.37 ABS# (0-10) L 09/02/22 03:25 Troponin T Hi Sens 6Hr 12.51 ng/L (0-10) H 09/02/22 07:45 Troponin T Hi Sens 6Hr Delta -2.49 ng/L (0-12) L 09/02/22 07:45 C-Reactive Protein 280.7 mg/L (0.0-4.9) H 09/02/22 00:54 NT-Pro-B Natriuret Pep 977 pg/mL (0-125) H 09/02/22 00:54 Total Protein 5.1 g/dL (6.6-8.7) L 09/04/22 03:38 Albumin 2.6 g/dL (3.5-5.2) L 09/04/22 03:38 Globulin 2.5 g/dL (1.3-4.6) 09/04/22 03:38 Triglycerides 232 mg/dL (0-150) H 09/03/22 04:00 Cholesterol 104 mg/dL (0-200) 09/03/22 04:00 LDL Cholesterol, Calc 40 mg/dL (50-129) L 09/03/22 04:00 Total VLDL Cholesterol 46 mg/dL (0-30) H 09/03/22 04:00 HDL Cholesterol 18 mg/dL (60-100) L 09/03/22 04:00 Cholesterol/HDL Ratio 5.78 mg/dL (0.0-4.40) H 09/03/22 04:00 Lipase 9 U/L (13-60) L 09/01/22 21:14 Vitamin B12 1537 pg/mL (232-1245) H 09/02/22 12:30 Folate 14.6 ng/mL (4.8-37.3) 09/02/22 12:30 Procalcitonin 30.68 ng/mL (0-0.5) H 09/02/22 00:54 TSH 0.48 uIU/mL (0.27-4.20) 09/02/22 00:54 Free T4 0.99 ng/dL (0.82-1.77) 09/02/22 00:54 Free T3 1.2 PG/ML (2.0-4.4) L 09/02/22 00:54 Random Cortisol 39.08 ug/dL (2.47-19.5) H 09/02/22 00:54 Urine Color Yellow (Yellow) 09/02/22 01:53 Urine Appearance Cloudy (CLEAR) A 09/02/22 01:53 Urine pH 5 (5-7) 09/02/22 01:53 Ur Specific Empire 1.020 (1.005-1.030) 09/02/22 01:53 Urine Protein 1+ (Negative) H 09/02/22 01:53 Urine Glucose (UA) Norm (Normal) 09/02/22 01:53 Urine Ketones Negative (Negative) 09/02/22 01:53 Urine Blood 3+ (Negative) H 09/02/22 01:53 Urine Nitrate Negative (Negative) 09/02/22 01:53 Urine Bilirubin Neg (Negative) 09/02/22 01:53 Urine Urobilinogen Norm mg/dL (Negative) 09/02/22 01:53 Ur Leukocyte Esterase 1+ (Negative) H 09/02/22 01:53 Urine RBC 0-4 /hpf (0-2) H 09/02/22 01:53 Urine WBC 10-15 /hpf (0-5) H 09/02/22 01:53 Ur Squamous Epith Cells 5-10 /hpf (0-5) H 09/02/22 01:53 Amorphous Sediment 3+ /hpf 09/02/22 01:53 Urine Bacteria Trace /hpf (NONE) 09/02/22 01:53 Ur Random Sodium 24 mmol/L 09/02/22 01:53 Ur Random Potassium 54 mmol/L 09/02/22 01:53 Ur Random Chloride < 10 mmol/L 09/02/22 01:53 Urine Creatinine 140 mg/dL (28-217) 09/02/22 01:53 Nasal Influ A H1 2009 PCR Detected (NOT DETECT) A 09/02/22 01:53 Urine Opiates Screen Positive ng/mL (Negative) H 09/02/22 01:53 Ur Barbiturates Screen Negative ng/mL (Negative) 09/02/22 01:53 Ur Phencyclidine Scrn Negative ng/mL (Negative) 09/02/22 01:53 Ur Amphetamines Screen Negative ng/mL (Negative) 09/02/22 01:53 U Benzodiazepines Scrn Negative ng/mL (Negative) 09/02/22 01:53 Urine Cocaine Screen Negative ng/mL (Negative) 09/02/22 01:53 U Marijuana (THC) Screen Negative ng/mL (Negative) 09/02/22 01:53 Serum Ketones Negative (Negative) 09/01/22 21:14 Adenovirus (PCR) Not detected (NOT DETECT) 09/02/22 01:53 C. pneumoniae DNA (PCR) Not detected (NOT DETECT) 09/02/22 01:53 Coronavirus 229E (PCR) Not detected (NOT DETECT) 09/02/22 01:53 Hepatitis A IgM Ab Non-reactive (Nonreactive) 09/02/22 07:22 Hep Bs Antigen Non-reactive (Nonreactive) 09/02/22 07:22 Hep B Core IgM Ab Non-reactive (Nonreactive) 09/02/22 07:22 Hepatitis C Antibody Non-reactive (Nonreactive) 09/02/22 07:22 HIV 1&2 Ab & HIV 1 Ag Non-reactive (Non-Reactiv) 09/02/22 07:22 HIV 1&2 Antibody Non-reactive (Non-Reactiv) 09/02/22 07:22 Human Metapneumovir PCR Not detected (NOT DETECT) 09/02/22 01:53 Influenza A (H1) PCR Not detected (NOT DETECT) 09/02/22 01:53 Influenza A (H3) PCR Not detected (NOT DETECT) 09/02/22 01:53 Influenza Type A Ag Negative (Negative) 09/01/22 22:03 Influenza Type A (PCR) Detected (NOT DETECT) A 09/02/22 01:53 Influenza Type B Ag Negative (Negative) 09/01/22 22:03 Influenza Type B (PCR) Not detected (NOT DETECT) 09/02/22 01:53 M. pneumoniae (PCR) Not detected (NOT DETECT) 09/02/22 01:53 Parainfluenza 1 (PCR) Not detected (NOT DETECT) 09/02/22 01:53 Parainfluenza 2 (PCR) Not detected (NOT DETECT) 09/02/22 01:53 Parainfluenza 3 (PCR) Not detected (NOT DETECT) 09/02/22 01:53 Parainfluenza 4 (PCR) Not detected (NOT DETECT) 09/02/22 01:53 RSV Type A (PCR) Not detected (NOT DETECT) 09/02/22 01:53 RSV Type B (PCR) Not detected (NOT DETECT) 09/02/22 01:53 Entero/Rhino (PCR) Not detected (NOT DETECT) 09/02/22 01:53 SARS-CoV-2 (PCR) Not detected (NOT DETECT) 09/02/22 01:53 SARS-CoV-2 Ag (Rapid) Negative (Negative) 09/01/22 22:03 Group A Strep Rapid Positive (Negative) H 09/02/22 03:09 Vitals Last Vital Signs Temp 98.2 F 09/04/22 12:00 Pulse 87 09/04/22 12:00 Resp 18 09/04/22 12:00 BP 117/65 09/04/22 12:00 Pulse Ox 95 09/04/22 11:54 O2 Del Method 09/04/22 11:54 O2 Flow Rate 2 09/04/22 08:00 Discharge Plan Discharge Patient Disposition: Home Condition: Stable Prescriptions: New oseltamivir 75 mg Capsule 75 mg PO BID 2 Days Qty: 4 0RF amoxicillin-pot clavulanate 875-125 mg tablet 1 tab PO BID Qty: 5 0RF pantoprazole 40 mg tablet,delayed release (DR/EC) 40 mg PO DAILY 42 Days Qty: 90 0RF ferrous sulfate 325 mg (65 mg iron) tablet 325 mg PO EVERY OTHER DAY Qty: 90 0RF Continued gabapentin 300 mg capsule 300 mg PO TID ProAir HFA 90 mcg/actuation HFA aerosol inhaler 2 puff INHALATION Q4H PRN (Reason: Shortness Of Breath) Changed baclofen 10 mg tablet 10 mg PO TID PRN (Reason: Spasms) Qty: 1 0RF Discontinued lisinopril 30 mg tablet 30 mg PO DAILY Discharge Orders: Discharge Order (Routine); Ordered 09/04/22 Ordered By: Tomy Varma Referrals: Ema Rodriuges FNP [Primary Care Provider] - 09/12/22 9:15 am Discharge Diet: Cardiac and Low Fat Discharge Activity: Increase activity as tolerated Patient Instructions: Amoxicillin/Clavulanate Potassium (By mouth), Oseltamivir (By mouth), Pantoprazole (By mouth), How to Stop Smoking (GEN), Gallstones (GEN), Acute Kidney Injury (GEN), Cigarette Smoking and Your Health (GEN), Influenza (GEN), Bacterial Pneumonia (GEN) Activity Restrictions/Additional Instructions: Complete antibiotic course for haemophilus pneumonia as well as suspected streptococcal pharyngitis with group A Streptococcus growing in respiratory culture, likely superimposed infection on top of influenza. Follow-up with your primary doctor for reassessment for recovery. Follow-up and discuss with your primary doctor also regarding occult blood in the stool, iron deficiency anemia and need for endoscopic evaluation. Follow-up with your primary doctor regarding elongated gallbladder with small gallstones. Work with your primary doctor to help you quit smoking. Discharge Attestations Time Spent in Discharge Care*: greater than 30 min Quality Metrics Clinical Quality Measures [ No reported AMI, CVA or VTE this stay] Coding Level of Care Code Acute Chg FW DC note Diagnoses Septic shock A41.9; R65.21 Acute renal failure N17.9 Diarrhea R19.7 Influenza A J10.1 Dehydration E86.0 Hypokalemia E87.6 Lactic acidosis E87.20 Metabolic acidosis E87.20 Smoker F17.200
--- NOTE | 2022-09-04 14:15 | PC.SOCIAL ---
Home o2 eval Per home o2 eval patient did not qualify for oxygen. No needs from CM.
== END 2022-09-04 16:09 | disposition home or self-care (01) | DRG 871 ==
LOC: ER 23:27 → ICU 09-02 00:10 → MEDSURG 09-03 16:23
PROVIDERS: Student in an Organized Health Care Education/Training Program; Admitting Provider Family Medicine; Emergency Provider Emergency Medicine; PCP Nurse Practitioner Family; Visit Provider Internal Medicine
DX: A41.9 Sepsis, unspecified organism (principal); N17.0 Acute kidney failure with tubular necrosis; R65.21 Severe sepsis with septic shock; E87.1 Hypo-osmolality and hyponatremia; J10.1 Influenza due to other identified influenza virus with other respiratory manifestations; E86.0 Dehydration; E87.6 Hypokalemia; F17.200 Nicotine dependence, unspecified, uncomplicated; I10 Essential (primary) hypertension; B95.0 Streptococcus, group A, as the cause of diseases classified elsewhere; B96.3 Hemophilus influenzae [H. influenzae] as the cause of diseases classified elsewhere; G89.29 Other chronic pain; M54.9 Dorsalgia, unspecified; D50.9 Iron deficiency anemia, unspecified
CPT/HCPCS: 36415; 36556; 36600; 51702; 71045; 71250; 74176; 76705; 80053; 80061; 80074; 80306; 81001; 82009; 82274; 82436; 82533; 82550; 82570; 82607; 82746; 82803; 83036; 83540; 83550; 83605; 83630; 83690; 83735; 83880; 84100; 84133; 84145; 84300; 84439; 84443; 84481; 84484; 85007; 85025; 85362; 85378; 85384; 85610; 85651; 85730; 86140; 86403; 87040; 87070; 87077; 87186; 87205; 87426; 87449; 87486; 87493; 87506; 87581; 87633; 87641; 87804; 87806; 87880; 93005; 93306; 94640; 94664; 94760; 96365; 96366; 96372; 96375; 99285; C9113; J1650; J2185; J2405; J3370; J3475; J3480; J7030; J7050; J7060; J7613; J7626; J7644

== ENCOUNTER → 2022-09-14 11:08 | Outpatient (BNVA) | payer MEDICAID, SELFPAY | PROVIDERS: PCP Nurse Practitioner Family; Visit Provider Internal Medicine Cardiovascular Disease | DX: R00.2 Palpitations (principal) | CPT/HCPCS: 93242 ==

== ENCOUNTER 2023-04-30 12:02 | Outpatient (CLI) | payer MEDICAID, SELFPAY ==
--- NOTE | 2023-04-30 | ECG_ITS ---
[facility] Test Date: 2023-04-30 Pat Name: Mine Gayle Department: Room: Gender: Female Artist'S Model: Alma Rosa Stover : 1960 Requested By: Ema Rodrigues Order Number: [id number] Santosh MD: Chana Lew M.D. Interpretive Statements NAME OF STUDY: TREADMILL STRESS TEST INDICATION: Chest Pain Baseline blood pressure of 143/96 mm Hg, heart rate 61 beats per minute. EKG showed sinus rhythm, left axis deviation with normal ST-Ts. The patient exercised for 5 minutes and 1 seconds on a standard Im[employer] protocol. Patient attained a maximum heart rate of 140 beats per minute( 88 % of the maximum predicted heart rate) with a blood pressure at the peak exercise of 200/95 mm Hg. The EKG at the peak exercise revealed sinus tachycardia with no significant ST-T wave changes. Patient did not have any chest pain or any significant arrhythmis with the exercise. Study was terminated due to maximal effort. During the recovery phase, there were no new changes. Blood pressure at the end of the recovery phase was 172/87 mm Hg with a heart rate of 77 beats per minute. CONCLUSION: 1. Normal EKG response to treadmill exercise. 2. No exercise-induced chest pain or cardiac arrhythmia. 3. Good exercise tolerance, attained a maximum of 7 METs. 4. Baseline hypertension with normal response to exercise. Electronically Signed On 05-14-2023 12:26:11 CDT by Chana Lew M.D. [id number]
[2023-04-30 13:03] VITALS: BMI 20.3
[2023-04-30 13:28] VITALS: BP 172/87; PULSE 96
== END 2023-04-30 12:03 | disposition home or self-care (01) ==
LOC: CDL 12:06
PROVIDERS: PCP Nurse Practitioner Family; Visit Provider Nurse Practitioner Family
DX: R07.9 Chest pain, unspecified (principal)
CPT/HCPCS: 93017

== ENCOUNTER → 2023-05-14 11:24 | Outpatient (BNVA) | payer MEDICAID, SELFPAY | PROVIDERS: PCP Nurse Practitioner Family; Referring Provider Nurse Practitioner Family; Visit Provider Internal Medicine Cardiovascular Disease | DX: I10 Essential (primary) hypertension (principal); F17.200 Nicotine dependence, unspecified, uncomplicated; I47.1 Supraventricular tachycardia; K21.9 Gastro-esophageal reflux disease without esophagitis | CPT/HCPCS: 99204 ==

== ENCOUNTER 2023-05-16 15:02 | Outpatient (CLI) | payer MEDICAID, SELFPAY ==
--- NOTE | 2023-05-16 15:12 | MM_ITS ---
WS: [email or web address] VIEWS: MLO and CC views both breasts. 3D digital tomosynthesis is also included in this exam. Comparison made with prior exam of 12/28/2006, 03/14/2011, 04/28/2019, 03/22/2022.. Findings: There was no sign of mass, architectural distortion or suspicious calcification in either breast. The breasts are extremely dense which lowers the sensitivity of mammography. Impression: MM/[place] [id number] BI-RADS: 2-Benign finding. FOLLOW-UP: 1 Year Follow-up This mammogram was also analyzed by the Computer Aided Detection System [employer].
== END 2023-05-16 15:03 | disposition home or self-care (01) ==
PROVIDERS: PCP Nurse Practitioner Family; Visit Provider Nurse Practitioner Family
DX: Z12.31 Encounter for screening mammogram for malignant neoplasm of breast (principal)
CPT/HCPCS: 77063; 77067

== ENCOUNTER → 2023-11-23 10:25 | Outpatient (BNVA) | payer MEDICAID, SELFPAY | PROVIDERS: PCP Nurse Practitioner Family; Visit Provider Nurse Practitioner Family | DX: I10 Essential (primary) hypertension (principal); F17.200 Nicotine dependence, unspecified, uncomplicated | CPT/HCPCS: 99213 ==

== ENCOUNTER → 2024-05-20 11:30 | Outpatient (BNVA) | payer MEDICAID, SELFPAY | PROVIDERS: PCP Nurse Practitioner Family; Visit Provider Internal Medicine Cardiovascular Disease | DX: R94.39 Abnormal result of other cardiovascular function study (principal); F17.200 Nicotine dependence, unspecified, uncomplicated; I10 Essential (primary) hypertension; K21.9 Gastro-esophageal reflux disease without esophagitis; I47.10 Supraventricular tachycardia, unspecified | CPT/HCPCS: 99214 ==

== ENCOUNTER → 2024-05-23 08:47 | Outpatient (BNVA) | payer MEDICAID, SELFPAY | PROVIDERS: PCP Nurse Practitioner Family; Referring Provider Nurse Practitioner Family; Visit Provider Nurse Practitioner Family | DX: L81.4 Other melanin hyperpigmentation (principal); L57.8 Other skin changes due to chronic exposure to nonionizing radiation; L57.0 Actinic keratosis; L82.1 Other seborrheic keratosis; Z85.828 Personal history of other malignant neoplasm of skin | CPT/HCPCS: 17000; 99213 ==

== ENCOUNTER 2024-10-03 12:44 | Outpatient (CLI) | payer MEDICAID, SELFPAY ==
--- NOTE | 2024-10-03 12:49 | MM_ITS ---
WS: [email or web address] VIEWS: MLO and CC views both breasts. 3D digital tomosynthesis is also included in this exam. Comparison made with prior exam of 03/14/2011, 04/28/2019, 03/22/2022, 05/16/2023.. Findings: The breasts are extremely dense, which lowers the sensitivity of mammography. No sign of suspicious mass, tumor calcification or architectural distortion. MM/MM scr BI tomosynthesis [id number] Impression: BI-RADS: 2 - Benign FOLLOW-UP: 1 Year Follow-up This mammogram was also analyzed by the Computer Aided Detection System [employer] Division [employer].
== END 2024-10-03 12:45 | disposition home or self-care (01) ==
LOC: RAD 12:45
PROVIDERS: PCP Nurse Practitioner Family; Visit Provider Nurse Practitioner Family
DX: Z12.31 Encounter for screening mammogram for malignant neoplasm of breast (principal); R92.343 Mammographic extreme density, bilateral breasts
CPT/HCPCS: 77063; 77067

== ENCOUNTER 2025-04-14 10:49 | Outpatient (CLI) | payer MEDICAID, SELFPAY ==
--- NOTE | 2025-04-14 10:57 | CT_ITS ---
WS: [email or web address] LDCT LUNG CANCER SCREENING TECHNIQUE: Noncontrast CT of the chest with coronal and sagittal reformatted images. CLINICAL INFORMATION: NICOTINE DEPENDENCE,CIGARETTES COMPARISON: 2021 DLP: 48.79 mGy.cm DIvol: Mean CTDIvol: 0.80 (mGy) All CT scans at [facility] use at least one of these dose optimization techniques: automated exposure control; mA and/or kV adjustment per patient size (includes targeted exams where dose is matched to clinical indication); or iterative reconstruction. FINDINGS: Calcified granulomas. A few scattered tiny subcentimeter micronodules. No new suspicious pulmonary parenchymal abnormalities. Subsegmental atelectasis RIGHT lower lobe. Normal caliber thoracic aorta. No mediastinal or hilar lymphadenopathy. No axillary lymphadenopathy. Mild thoracic curve. Mild thoracic kyphosis. CT/CT lung screening [id number] IMPRESSION: LUNG-RADS: 2-Benign Appearance or Behavior FOLLOW UP: 12 Month: Continue annual screening with LDCT
== END 2025-04-14 10:50 | disposition home or self-care (01) ==
LOC: RAD 10:50
PROVIDERS: PCP Nurse Practitioner Family; Visit Provider Nurse Practitioner Family
DX: Z12.2 Encounter for screening for malignant neoplasm of respiratory organs (principal); F17.210 Nicotine dependence, cigarettes, uncomplicated; J84.10 Pulmonary fibrosis, unspecified; J98.11 Atelectasis
CPT/HCPCS: 71271